=== PATIENT | female | born 1975 | race Two or more races ===

== ENCOUNTER → 2017-02-27 | Outpatient (CLI) | payer BC ==
--- NOTE | ~2017-02-27 | US24 ---
[facility] A Service [facility] RADIOLOGY TEXT RESULTS PATIENT: CYRUS KENYON LOCATION: [facility] : 77 UNIT #: [id number] AGE: [address]: Bob Velázquez MD SEX: F ORDER DR: [id number] [place], [place] [address] [id number] O MR#: [id number] Acc #: [id number] NAME: CYRUS KENYON : 1975 SEX: F STUDY DATE/TIME: 02/27/2017 12:59 UNIT: [facility] ROOM: STUDY DESCRIPTION: US Breast Unilateral Attending Physician: Bob Velázquez M.D. Referring Physician: Bob Velázquez M.D. Ordering Physician: Bob Velázquez M.D. Primary Care Physician: Bob Velázquez M.D. MEDICAL IMAGING REPORT This report is preliminary unless electronic signature is present EXAM Diagnostic right breast ultrasound Date: 02/27/17. HISTORY Palpable abnormality of the right breast approximate 1 week. COMPARISON Mild digital diagnostic mammogram 02/27/2017 FINDINGS Target sonographic images were obtained of the right breast at the site of the patient palpable complaint. These were to the diagnostic mammogram report for full description mammographic and sonographic findings and recommendations. IMPRESSION Right breast BIRADS category 4. Suspicious abnormality. Biopsy recommended. Please refer to the diagnostic mammogram report from this same day for full description of mammographic and sonographic findings and recommendations. Dictated by... Cait Sevilla M.D. THIS IS AN ELECTRONICALLY VERIFIED REPORT Cait Sevilla M.D. at 03/04/2017 8:44 AM LL/luz [facility] A Service of [facility] RADIOLOGY TEXT RESULTS PATIENT: CYRUS KENYON LOCATION: [facility] : 77 UNIT #: [id number] AGE: [address]: Bob Velázquez MD SEX: F ORDER DR: TD: 02/27/2017 22:21 JOB #: [id number] MEDICAL IMAGING REPORT Page 1 of 1 COPY
--- NOTE | ~2017-02-27 | MY6 ---
[facility] A Service of [facility] RADIOLOGY TEXT RESULTS PATIENT: CYRUS KENYON LOCATION: [facility] : 77 UNIT #: [id number] AGE: [address]: Bob Velázquez MD SEX: F ORDER DR: [id number] [facility] [address] [place], [place] [address] [id number] O MR#: [id number] Acc #: [id number] NAME: CYRUS KENYON : 1975 SEX: F STUDY DATE/TIME: 02/27/2017 12:16 UNIT: [facility] ROOM: STUDY DESCRIPTION: MY Mammogram Dx Dig Grant Attending Physician: Bob Velázquez M.D. Referring Physician: Bob Velázquez M.D. Ordering Physician: Bob Velázquez M.D. Primary Care Physician: Bob Velázquez M.D. MEDICAL IMAGING REPORT This report is preliminary unless electronic signature is present EXAMINATION Bilateral digital diagnostic mammogram with CAD. DATE 02/27/2017 HISTORY 41-year-old female with palpable abnormality in the upper/inner right breast for approximately 1 week. COMPARISON None. This is patient's baseline study. FINDINGS CC, MLO and true ML views were obtained of each breast utilizing digital technique and reviewed with an FDA-approved CAD device. Breast parenchyma is extremely dense which can limit sensitivity of mammography. A triangular marker was placed over the right breast at site of patient's palpable complaint. At approximately the 3 o'clock axis, a well-circumscribed approximately 2 cm nodule is seen, corresponding to the site of patient's palpable complaint. No associated architectural distortion or microcalcification is seen. Within the left breast, no nodule, mass, architectural distortion or suspicious clustered microcalcification is seen. The right breast nodule becomes more conspicuous on spot compression views in the CC and MLO plane. Targeted diagnostic right breast ultrasound was performed on this same date. At the site of patient's palpable complaint at 3 o'clock axis, 3 cm [facility] A Service [facility] RADIOLOGY TEXT RESULTS PATIENT: CYRUS KENYON LOCATION: [facility] : 77 UNIT #: [id number] AGE: [address]: Bob Velázquez MD SEX: F ORDER DR: from the nipple, a 1.7 x 2.1 x 1.0 cm hypoechoic oval, wider than tall nodule with enhanced acoustic through transmission, without hypervascularity is seen. No associated architectural distortion or microcalcification. This finding is thought most likely to represent a benign fibroadenoma. Two similar appearing solid nodules are seen in the same vicinity, one in the 1 o'clock axis, 2 cm from the nipple measuring about 1.1 x 1.1 x 0.5 cm, and a second in the subareolar region measuring approximately 1.1 x 0.7 cm. IMPRESSION BIRADS category 4. Suspicious abnormality. Biopsy warranted. There are 3 solid nodules within the right breast as described in detail in the report, the dominant in the 3 o'clock axis which corresponds to the patient's palpable complaint, another in the 1 o'clock axis, another in the subareolar right breast. 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 Verification utilizing ultrasound-guided core biopsy is recommended at each of these nodules. Findings and recommendations were discussed directly with the patient today in the radiology department, and she wishes to proceed. She is not on blood thinning agents. The biopsy can be scheduled by the referring physician's office at the patient's convenience. I have notified Christine, the breast after school caregiver, who will be in contact with the referring physician's office to facilitate this. BIRADS 4. Biopsy recommended. Patients over the age of 40 are entered into a reminder system with target due date for the next mammogram. A result letter will also be sent to the patient. BIRADS: 4 Suspicious abnormality; biopsy should be considered. Dictated by... Cait Sevilla M.D. THIS IS AN ELECTRONICALLY VERIFIED REPORT Cait Sevilla M.D. at 03/04/2017 8:44 AM JOSE ANTONIO/shayne TD: 02/27/2017 17:30 JOB #: [id number] MEDICAL IMAGING REPORT Page 1 of 1 COPY
== END | disposition home or self-care (01) ==
LOC: CMAM 11:49
DX: N63 Unspecified lump in breast (principal)
CPT/HCPCS: 76641; G0204

== ENCOUNTER → 2017-04-17 | Outpatient (CLI) | payer BC ==
--- NOTE | ~2017-04-17 | US201 ---
[id number] [facility] [address] [place], [place] [address] [id number] O MR#: [id number] Acc #: [id number] NAME: CYRUS KENYON : 1975 SEX: F STUDY DATE/TIME: 04/17/2017 8:13 UNIT: [facility] ROOM: STUDY DESCRIPTION: US Breast Guided Bx Add Lesion Attending Physician: Bob Velázquez M.D. Referring Physician: Bob Velázquez M.D. Ordering Physician: Bob Velázquez M.D. Primary Care Physician: Bob Velázquez M.D. MEDICAL IMAGING REPORT This report is preliminary unless electronic signature is present EXAM US Breast guided biopsy HISTORY Solid right breast nodule seen on recent ultrasound with a 1.9 cm nodule at 3 o'clock, 3 cm from the nipple, 10 mm nodule in the subareolar region and an 11 mm lesion at 1 o'clock 2 cm from the nipple. A larger one was palpable and easily visible on mammography. FINDINGS Please see [id number] for full report. Dictated by... Ba Farrell M.D. THIS IS AN ELECTRONICALLY VERIFIED REPORT Ba Farrell M.D. at 04/30/2017 1:00 PM Lasha TD: 04/25/2017 21:14 JOB #: [id number] MEDICAL IMAGING REPORT Page 1 of 1 COPY
--- NOTE | ~2017-04-17 | US200 ---
[facility] A Service of [facility] RADIOLOGY TEXT RESULTS PATIENT: CYRUS KENYON LOCATION: [facility] : 77 UNIT #: [id number] AGE: [address]: Bob Velázquez MD SEX: F ORDER DR: [id number] [facility] [address] [place], [place] [address] [id number] O MR#: [id number] Acc #: [id number] NAME: CYRUS KENYON : 1975 SEX: F STUDY DATE/TIME: 04/17/2017 8:13 UNIT: [facility] ROOM: STUDY DESCRIPTION: US Breast Guided Bx 1st Lesion Attending Physician: Bob Velázquez M.D. Referring Physician: Bob Velázquez M.D. Ordering Physician: Bob Velázquez M.D. Primary Care Physician: Bob Velázquez M.D. MEDICAL IMAGING REPORT This report is preliminary unless electronic signature is present EXAM Right breast ultrasound-guided core biopsy x3. HISTORY Solid right breast nodule seen on recent ultrasound with a 1.9 cm nodule at 3 o'clock, 3 cm from the nipple, 10 mm nodule in the subareolar region and an 11 mm lesion at 1 o'clock 2 cm from the nipple. A larger one was palpable and easily visible on mammography. FINDINGS Informed consent was obtained. After sterile preparation with local anesthesia, I obtained three 14-gauge core samples from each lesion under direct ultrasound guidance. A maker clip was placed at each site. The bowtie shaped clip was placed at 3 o'clock 3 cm from the nipple. A U-shaped clip was placed at 1 o'clock 2 cm from the nipple and a bowtie shaped clip was placed in the subareolar region. Post-procedure mammogram showed the clips in good position. IMPRESSION Successful 14-gauge core sampling of 3 masses seen on ultrasound. ADDENDUM The pathology report has been returned and it shows findings consistent with fibroadenomas which is concordant. I suggest a 6-month follow-up ultrasound to document stability and size of these benign lesions, and after that, they could probably be followed up with annual mammography. Dictated by... Ba Farrell M.D. [facility] A Service of [facility] RADIOLOGY TEXT RESULTS PATIENT: CYRUS KENYON LOCATION: [facility] #: [id number] : [birth year] UNIT #: [id number] AGE: [address]: Bob Velázquez MD SEX: F ORDER DR: THIS IS AN ELECTRONICALLY VERIFIED REPORT Ba Farrell M.D. at 04/26/2017 9:34 PM BETH/shayne TD: 04/25/2017 21:14 JOB #: [id number] MEDICAL IMAGING REPORT Page 1 of 1 COPY
--- NOTE | ~2017-04-17 | US201 ---
[id number] [facility] [address] [place], [place] [address] [id number] O MR#: [id number] Acc #: [id number] NAME: CYRUS KENYON : 1975 SEX: F STUDY DATE/TIME: 04/17/2017 8:13 UNIT: [facility] ROOM: STUDY DESCRIPTION: US Breast Guided Bx Add Lesion Attending Physician: Bob Velázquez M.D. Referring Physician: Bob Velázquez M.D. Ordering Physician: Bob Velázquez M.D. Primary Care Physician: Bob Velázquez M.D. MEDICAL IMAGING REPORT This report is preliminary unless electronic signature is present EXAM US breast guided biopsy. HISTORY Solid right breast nodule seen on recent ultrasound with a 1.9 cm nodule at 3 o'clock, 3 cm from the nipple, 10 mm nodule in the subareolar region and an 11 mm lesion at 1 o'clock 2 cm from the nipple. A larger one was palpable and easily visible on mammography. FINDINGS Please see [id number] for full report. Dictated by... Ba Farrell M.D. THIS IS AN ELECTRONICALLY VERIFIED REPORT Ba Farrell M.D. at 04/30/2017 1:00 PM Lasha TD: 04/25/2017 21:14 JOB #: [id number] MEDICAL IMAGING REPORT Page 1 of 1 COPY
== END | disposition home or self-care (01) ==
LOC: CWCC 07:33
DX: D24.1 Benign neoplasm of right breast (principal)
CPT/HCPCS: 88305; G0204